=== PATIENT | male | born 1975 | race Hispanic/Latino ===

== ENCOUNTER 2016-08-31 18:41 | Emergency (ER) | payer OTHER ==
[~2016-08-31] VITALS: Ht 165.1 cm; Wt 86.2 kg
[~2016-08-31 18:41] MED LIST: CALCIPOTRIENE60 G1 TOP; DIAZEPAM5 M1 PO; DURAGESIC25 MCG TOP; FOLIC ACID 1 MG PO; HUMIRA (4040 MG/0.8 SC; METHOTREXATE2.5 M1 PO; MUCINEX D ER T1 EACH PO; OXYCODONE HCL15 M1 PO; OXYCONTIN10 MG PO; PREDNISONE20 M1 PO; PROAIR HFA8.5 GM INH; ROXICODONE5 MG PO; SIMPONI100 MG/1 M IV; SOMA 350MG TAB350 MG PO; TESSALON PERLE100 M1 PO; VITAMIN D250000 UNIT PO; ZITHROMAX250 M2 PO
--- NOTE | 2016-08-31 19:45 | ED NECK/BACK PAIN COMPLAINT ---
History of Present Illness General Chief Complaint: Neck/Upper Back Pain/Injury Stated Complaint: UPPER BACK PAIN Source: patient Exam Limitations: no limitations Allergies Coded Allergies: Sulfa (Sulfonamide Antibiotics) (HIVES WITH SWELLING AND BLACK SPOTS 05/12/16) acetaminophen (From TYLENOL) (ITCHING 05/12/16) ciprofloxacin (From CIPRO) (INTERNAL BLEEDING 05/12/16) fentanyl (STOPPED BREATHING 05/12/16) morphine (DIARRHEA 05/12/16) pork derived (porcine) (HIVES 05/12/16) Reconcile Medications Albuterol Sulfate (Proair Hfa) 90 MCG HFA.AER.AD 2 PUF INH Q4-6 PRN PRN sob Calcipotriene 0.005 % CREAM..G. 1 ELDA TOP TID PSORIASIS (Reported) Diazepam 5 MG TABLET 1 TAB PO BID MUSCLE SPASMS (Reported) Golimumab (Simponi) 100 MG/ML SYRINGE 200 MG IV Q6W RA/LUPUS (Reported) Oxycodone HCl 15 MG TABLET 1 TAB PO TID PAIN (Reported) Triage Note: PT TO ED FOR NECK PAIN, STATING HE HAS A HX OF CHRONIC NECK PAIN, PSORIATIC ARTHRITIS AND "ITS BAD TODAY" TOOK OXY AND VALIUM WITH NO RELIEF. Triage Nurses Notes Reviewed? yes HPI: This patient is a 40-year-old male with past medical history including psoriatic arthritis, lupus, and anxiety who presented to the emergency department today for evaluation of neck and back pain. The patient reported that, "my nerves are intact in knee." He reported that this happens periodically. He reported that he feels the pain radiates down his spine and it is worse with movement. The pain gets up to a 9 out of 10 and has been constant. He reported that he took his oxycodone and Valium today without any relief of his symptoms. He is refusing any further medication here as he reported it is making him feel nauseous. He is requesting an x-ray of his chest because he reported that one time this happened, "my lungs well." He reported that he just wants to make sure that his lungs are okay. He denied any chest pain, difficulty breathing, fevers, chills, jaw pain, arm pain, numbness or tingling in his extremities, abdominal pain, or vomiting. (EMPERATRIZ MARTINEZ,BILL) Vital Signs & Intake/Output Vital Signs & Intake/Output Vital Signs Date Time Temp Pulse Resp B/P Pulse O2 O2 Flow FiO2 Ox Delivery Rate 09/01 2047 98.1 88 20 125/82 96 Room Air 08/31 1857 98.5 63 15 154/91 100 Room Air ED Intake and Output 09/01 0000 08/31 1200 Intake Total 0 Output Total Balance 0 Intake, Oral 0 Patient 190 lb Weight Past History Travel History Traveled to [place] past 21 day No Medical History Any Pertinent Medical History? see below for history Neurological: NONE EENT: NONE Cardiovascular: NONE Respiratory: NONE Gastrointestinal: GERD, FATTY LIVER Hepatic: NONE Renal: NONE Musculoskeletal: psoariatic arthritis, LUPUS Psychiatric: anxiety Endocrine: NONE Blood Disorders: NONE Cancer(s): NONE VIAL GAUGER/Reproductive: NONE Surgical History Surgical History: non-contributory Psychosocial History What is your primary language Omani Tobacco Use: Never used ETOH Use: denies use Illicit Drug Use: denies illicit drug use Family History Hx Contributory? No (BILL AWAN PA-C) Review of Systems Review of Systems Constitutional: Reports: no symptoms. Eyes: Reports: no symptoms. Ears, Nose, Throat, Mouth: Reports: no symptoms. Respiratory: Reports: no symptoms. Cardiovascular: Reports: no symptoms. Gastrointestinal/Abdominal: Reports: see HPI. Musculoskeletal: Reports: see HPI. Skin: Reports: no symptoms. Neurological/Psychological: Reports: see HPI. All Other Systems: Reviewed and Negative (BILL AWAN PA-C) Physical Exam Physical Exam Neck: normal inspection, supple, full range of motion, normal alignment, no midline tenderness Comments: Well-developed well-nourished person in no acute distress HEENT: Normal EENT exam, head normocephalic, moist mucous membranes Pupils equally round and reactive to light. Back: Thoracic paraspinal musculature tenderness. No midline tenderness. Antalgic gait Cardiovascular: Regular rate and rhythm with no murmurs, rubs, or gallops Respiratory: Chest nontender. No respiratory distress. Breath sounds clear to auscultation bilaterally with no wheezes, rales, or rhonchi. No diminished breath sounds Extremity: Normal and equal pulses Neuro: Alert oriented x3, cranial nerves II through XII grossly intact. Skin: No appreciable rash on exposed skin, skin is warm and dry. Psych: Mood and affect is normal (EMPERATRIZ PA-C,BILL) Progress Differential Diagnosis: C spine injury, carotid dissection, herniated disc, myofascial strain, spinal cord inj, thoracic outlet syn, T/L spine injury, PNEUMONIA, PULMONARY EDEMA Plan of Care: Orders Procedure Date/time Status XRY-CHEST XRAY, PA AND LATERAL 08/31 1938 Active Diagnostic Imaging: Viewed by Me: Radiology Read. Discussed w/RAD: Radiology Read. CXR Impression: PATIENT: MONTEZ BURK PRESENT AGE: 40 PATIENT ACCOUNT NO: [id number] : 74 LOCATION: [facility] ORDERING PHYSICIAN: BILL AWAN PA-C SERVICE DATE: 08/31/16 EXAM TYPE: RAD - XRY-CHEST XRAY, PA AND LATERAL EXAMINATION: XR CHEST CLINICAL INFORMATION: Clinical concern for pulmonary edema. COMPARISON: Chest x-ray 05/12/2016. TECHNIQUE: 2 views of the chest were obtained. FINDINGS: Low lung volumes. There is no focal consolidation, pleural effusion, or pneumothorax. No evidence of pulmonary edema. Cardiac silhouette size is normal. There are no acute osseous findings. IMPRESSION: No acute pulmonary process. There is no evidence of pulmonary edema. DICTATED BY: JUAN LAGUNA MD DATE/TIME DICTATED:08/31/162027 CAPACITY ANALYST:ARIANNA DATE/TIME TRANSCRIBED:08/31/162027 CONFIDENTIAL, DO NOT COPY WITHOUT APPROPRIATE AUTHORIZATION. <Electronically signed in Other Vendor System> SIGNED BY: JUAN LAGUNA MD 08/31/162032 (BILL AWAN PA-C) Departure Departure Disposition: HOME OR SELF CARE Condition: Stable Clinical Impression Primary Impression: Neck pain Referrals: JAUN BANEGAS MD (PCP/Family) Additional Instructions: Continue to take your previously prescribed medications as directed. Follow-up with your primary care physician. Return for any worsening symptoms or concerns. Departure Forms: Customer Survey General Discharge Information (BILL AWAN PA-C) PA/FARM SUPERVISOR Co-Sign Statement Statement: ED Attending supervision documentation- [] I saw and evaluated the patient. I have also reviewed all the pertinent lab results and diagnostic results. I agree with the findings and the plan of care as documented in the PA's/FARM SUPERVISOR's documentation. x I have reviewed the ED Record and agree with the PA's/FARM SUPERVISOR's documentation. [] Additions or exceptions (if any) to the PAs/FARM SUPERVISOR's note and plan are summarized below: [] (STEVE LOWERY,ELSI)
--- NOTE | 2016-08-31 20:33 | RADIOLOGY REPORT ---
EXAMINATION: XR CHEST CLINICAL INFORMATION: Clinical concern for pulmonary edema. COMPARISON: Chest x-ray 05/12/2016. TECHNIQUE: 2 views of the chest were obtained. FINDINGS: Low lung volumes. There is no focal consolidation, pleural effusion, or pneumothorax. No evidence of pulmonary edema. Cardiac silhouette size is normal. There are no acute osseous findings. IMPRESSION: No acute pulmonary process. There is no evidence of pulmonary edema.
[2016-08-31 20:48] VITALS: BP 125/82
== END 2016-08-31 20:50 ==
LOC: ERH 18:41
DX: M54.2 Cervicalgia (principal)

== ENCOUNTER 2017-11-23 23:35 | Emergency (ER) | payer OTHER ==
[~2017-11-23 23:35] MED LIST changes: +CHERATUSSIN AC118 M1 PO; +DOXYCYCLINE HY100 M4 PO; +ERYTHROMYCIN1 GM OPH; +FLONASE ALLERG9.9 ML NAS; +KEFLEX250 M1 PO; +POLYTRIM EYE DR10 ML OPH; +ZANAFLEX2 M2 PO; +ZITHROMAX500 M2 PO
[2017-11-23 23:49] VITALS: BP 148/80
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
== END 2017-11-24 01:47 ==
LOC: ERH 23:35
DX: S63.601A Unspecified sprain of right thumb, initial encounter (principal); S63.602A Unspecified sprain of left thumb, initial encounter; V48.0XXA Car driver injured in noncollision transport accident in nontraffic accident, initial encounter; Y92.9 Unspecified place or not applicable
CPT/HCPCS: 73140-LT; 73140-RT